=== PATIENT | female | born 1950 | race Caucasian/White ===

== ENCOUNTER 2016-06-07 11:46 | Emergency (ER) | payer MEDICARE ==
--- NOTE | 2016-06-07 13:01 | ER PHYSICIAN DOCUMENTATION ---
Physician Documentation [facility] Name:Estela Ortiz Age:66 yrs Sex:Female :1950 Arrival Date:06/07/2016 Time:11:46 Bed1 Private MD: John Helton Disposition: 06/07/16 12:52 Discharged to Home/Self Care. Impression: Lower Extremity Pain. - Condition is Good. - Discharge Instructions: MUSCLE ACHING - MYALGIAS. - Medical Reconciliation form form. - Follow up: Private Physician; When: As needed; Reason: Continuance of care. - Problem is new. - Symptoms have improved. HPI: 06/07 12:21 This 66 yrs old Female presents to ER via Private Vehicle with complaints of jm Leg Pain - POSSIBLE DVT?. 12:21 The patient presents with pain, that is acute. The complaints affect the right calf. jm Associated signs and symptoms: Pertinent positives: calf tenderness, Pertinent negatives numbness, swelling, warmth, weakness. Severity of symptoms: At their worst the symptoms were moderate, in the emergency department the symptoms are unchanged. PT does not recall pulling a muscle or straining it. Pt is worried about a blood clot. . Historical: - Allergies: No known drug Allergies; - Home Meds: 1. progesterone micronized oral - PMHx: None; - PSHx: Appendectomy; - Tetanus: < 10 years. - Ebola Screening: : Patient denies exposure to infectious person. Patient denies travel to an Ebola-affected area in the 21 days before illness onset. . - Social history: Smoking status: Patient states was never smoker of tobacco. Patient uses alcohol on a daily basis. Patient/guardian denies using marijuana. ROS: 12:22 MS/extremity: Positive for tenderness, Negative for rash, swelling, warmth. jm 12:22 Skin: Negative for rash, swelling. 12:22 Neuro: Negative for numbness, tingling. Exam: 12:22 Constitutional: The patient appears alert, awake. jm 12:22 Musculoskeletal/extremity: DVT Exam: no swelling, no tenderness, negative Homans' sign noted on exam, no appreciated bluish discoloration, no erythema, no increased warmth, pain, that is mild. 12:22 Skin: Appearance: swelling, is not appreciated, no rash present. 12:22 Neuro: Mentation: is normal, Memory: is normal. Vital Signs: 12:01 BP 104 / 65; Pulse 63; Resp 18; Temp 97.8; Pulse Ox 94% on R/A; Pain 4/10; st MDM: 12:09 Patient medically screened. 12:23 Differential diagnosis: calf strain vs. DVT. Data reviewed: vital signs, nurses notes, jm lab test result(s), and as a result, I will discharge patient. Counseling: I had a detailed discussion with the patient and/or guardian regarding: the historical points, exam findings, and any diagnostic results supporting the discharge/admit diagnosis, lab results, the need for outpatient follow up, with the patient's primary care provider. Dispensed Medications: No medications were administered Signatures: Elizabeth Greene RN RN st Meyer, John, MD MD jm Hofsess, Rachel
--- NOTE | 2016-06-07 13:01 | ER NURSING DOCUMENTATION ---
Nurse's Notes [facility] Name:Estela Ortiz Age:66 yrs Sex:Female :1950 Arrival Date:06/07/2016 Time:11:46 Bed1 Private MD: Diagnosis:Lower Extremity Pain Presentation: 06/07 11:51 Acuity: GEETA 4 st 11:51 Presenting complaint: Patient states: pt states she has had some right calf pain since st Friday. pt states the pain gets a little worst with walking. Transition of care: Home. Care prior to arrival: None. 11:51 Method Of Arrival: Private Vehicle st Triage Assessment: 11:59 General: Appears in no apparent distress, Behavior is cooperative. Pain: Complains of st pain in right calf Pain currently is 4 out of 10 on a pain scale. At worst was 5 out of 10 on a pain scale. Pain began five days. Cardiovascular: No deficits noted. Respiratory: No deficits noted. GI: No deficits noted. Musculoskeletal: Circulation, motion, and sensation intact Capillary refill < 3 seconds Range of motion intact in all extremities. Swelling absent Tenderness present in right calf. Historical: - Allergies: No known drug Allergies; - Home Meds: 1. progesterone micronized oral - PMHx: None; - PSHx: Appendectomy; - Tetanus: < 10 years. - Ebola Screening: : Patient denies exposure to infectious person. Patient denies travel to an Ebola-affected area in the 21 days before illness onset. . - Social history: Smoking status: Patient states was never smoker of tobacco. Patient uses alcohol on a daily basis. Patient/guardian denies using marijuana. Screenin:01 Infectious Disease Risk None. Abuse screen: Denies threats or abuse. Denies injuries st from another. pt feels safe at home. Nutritional screening: No deficits noted. Assessment: 12:02 General: pt denies any long trips. pt states she did have a day where she was doing a st lot of sitting. . Vital Signs: 12:01 BP 104 / 65; Pulse 63; Resp 18; Temp 97.8; Pulse Ox 94% on R/A; Pain 4/10; st ED Course: 11:50 Patient arrived in ED. lm3 11:51 Triage completed. 11:53 Elizabeth Greene RN is Primary Nurse. st 11:[address] 12:02 Labs drawn. By Lab Staff. st 12:02 Valuables Remains with patient Patient has correct armband on for positive st identification. Placed in gown. Bed in low position. 12:09 John Steele MD is Attending Physician. abdiaziz Administered Medications: No medications were administered Outcome: 12:52 Discharge ordered by . abdiaziz 13:00 Discharged to home ambulatory. st 13:00 Condition: stable 13:00 Discharge instructions given to patient, Instructed on discharge instructions, follow up and referral plans. medication usage. 13:00 [address] the ED[address] st 06/08 10:50 Discharge F/U Call: Spoke with: patient. other: Name: pt states she still has the st calf pain but is glad that it is not a DVT. pt has no questions or concerns. pt will be working on getting a PCP next week. Signatures: Elizabeth Greene, RN RN John aDo MD MD jm Hofsess, Rachel Bia, Nadya 3
== END 2016-06-07 13:01 | disposition home or self-care (01) ==
LOC: ER 11:46
DX: M79.661 Pain in right lower leg (principal)
CPT/HCPCS: 36415; 85379; 99283